=== PATIENT | male | born 1985 | race Caucasian/White ===

== ENCOUNTER 2021-11-13 16:08 | Emergency (ER) | payer MEDICAID ==
[~2021-11-13] VITALS: Ht 180.3 cm; Wt 98.0 kg
[2021-11-13 16:22] VITALS: BP 137/58
== END 2021-11-13 19:30 | disposition left against medical advice (07) ==
LOC: MED 16:08
DX: H92.01 Otalgia, right ear (principal); H57.89 Other specified disorders of eye and adnexa; Z53.21 Procedure and treatment not carried out due to patient leaving prior to being seen by health care provider